=== PATIENT | female | born 1990 | race Caucasian/White ===

== ENCOUNTER → 2017-04-04 | Day surgery (SDC) | payer OTHER ==
[~2017-04-04] VITALS: Ht 170.2 cm; Wt 67.1 kg
[~2017-04-04] MED LIST: GABAPENTIN300 M2 PO; KLONOPIN0.5 M1 PO; ORAL CONTRACEPTIVE
--- NOTE | 2017-04-04 09:57 | Operative Report ---
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 She had recurrent knee pain. Examination was consistent with common peroneal nerve compression. Risks and benefits of the procedure were discussed with the patient at length. Risks include but are not limited to nerve damage, muscle damage, infection, blood loss, blood clots, pulmonary embolus, and even . The patient agreed to the above risks and elected to proceed with surgery. Operative/Procedure Note Note: The patient was placed supine on the operating room table. A tourniquet was applied. The lower extremity prepped and draped in normal sterile fashion. A timeout was performed before the incision. The site marking was visualized before incision. After the leg was prepped and draped, an Esmarch was used to exsanguinate the extremity. The tourniquet was inflated. A transverse incision was made distal to the fibular head. Care was taken to protect the neurovascular structures. Cutaneous nerves were identified and isolated. The common peroneal nerve was palpated. The fascia was then opened. The nerve was then isolated and protected. Thickened fascia superficial to the nerve was then taken down proximally. The anterior compartment fascia was then incised to perform anterior compartment fasciotomy. Several intermuscular septums between the peroneus longus and anterior compartment muscles was then isolated and incised. Care was taken throughout the procedure protect the peroneal nerve. The nerve was then freed superficially and deep. Adequate excursion the nerve was then obtained without any fascial adhesions noted throughout the course of the nerve. The wound was then copiously irrigated. The tourniquet was let down. Any bleeding vessels were identified and cauterized. The skin was closed with 2-0 Vicryl suture and a running 3-0 subcuticular Prolene stitch. A dry sterile dressing was applied. Patient was transferred PACU in stable condition.
== END ==
LOC: STS 01:44
DX: G57.82 Other specified mononeuropathies of left lower limb (principal); M76.52 Patellar tendinitis, left knee; M79.662 Pain in left lower leg; M25.562 Pain in left knee
CPT/HCPCS: 81025; J0690; J2250